=== PATIENT | female | born 1970 | race American Indian/Alaskan Native ===

== ENCOUNTER 2018-11-08 11:47 | Emergency (ER) | payer OTHER ==
[~2018-11-08] VITALS: Ht 165.1 cm; Wt 99.8 kg
[~2018-11-08 11:47] MED LIST: ACET325 PO; ALBU90OI INH; BENZ100A PO; CARI350 PO; CEPH500 PO; HYDACE5 PO; NAPR550 PO; OXYACE7.5T PO; PROACE100 PO; Permethrin60 GM TP; RXNAPNA550 PO; RXPROACE PO; SULTRIDS PO; TRAM50 PO; Zithromax250 MG PO
[2018-11-08] MEDS ORDERED: METPRE4DP PO (12:23)
[2018-11-08] MEDS ORDERED: Cheratussin AC118 ML PO (12:23)
[2018-11-08] MEDS ORDERED: Zithromax250 MG PO (12:23)
== END 2018-11-08 12:32 | disposition home or self-care (01) ==
LOC: ER 11:47
DX: R05 Cough (principal); Z88.0 Allergy status to penicillin; Z87.891 Personal history of nicotine dependence
CPT/HCPCS: 87081; 87430; 99283

== ENCOUNTER 2019-04-04 10:04 | Emergency (ER) | payer MEDICAID ==
[~2019-04-04] VITALS: Ht 165.1 cm; Wt 89.8 kg
[~2019-04-04 10:04] MED LIST changes: +Cheratussin AC118 ML PO; +METPRE4DP PO
[2019-04-04] MEDS ORDERED: POLTRIOPSO LEFTEYE (10:29)
== END 2019-04-04 10:32 | disposition home or self-care (01) ==
LOC: ER 10:04
DX: H10.022 Other mucopurulent conjunctivitis, left eye (principal); Z88.0 Allergy status to penicillin; Z87.891 Personal history of nicotine dependence
CPT/HCPCS: 99282

== ENCOUNTER 2019-08-26 00:28 | Emergency (ER) | payer MEDICAID ==
[~2019-08-26] VITALS: Ht 165.1 cm; Wt 90.7 kg
[~2019-08-26 00:28] MED LIST changes: +POLTRIOPSO LEFTEYE; +Percocet 5-3251 EACH PO; +Vibramycin100 MG PO
[2019-08-26] MEDS ORDERED: CYCL10 PO (01:46)
== END 2019-08-26 01:57 | disposition home or self-care (01) ==
LOC: ER 00:28
DX: M62.830 Muscle spasm of back (principal); Z87.891 Personal history of nicotine dependence; Z88.0 Allergy status to penicillin
CPT/HCPCS: 99283; A9270